=== PATIENT | female | born 1985 | race Caucasian/White ===

== ENCOUNTER 2019-05-01 00:51 | Inpatient (IN) | payer SELFPAY ==
[~2019-05-01 00:51] MED LIST: Bupivacaine 0.25% 10 ML SDV ONE; Lidocaine 1.5% with EPINEPHrine 1:200,000 5 ML Amp ONE; ePHEDrine 50 MG/ML SDV ONE
[2019-05-01] MEDS ORDERED: ePHEDrine 50 MG/ML SDV IVPUSH PRN (01:14)
[2019-05-01] MEDS ORDERED: diphenhydrAMINE 50 MG/ML SDV IVPUSH PRN (01:14)
[2019-05-01] MEDS ORDERED: Ondansetron 4 MG/2 ML SDV IVPUSH PRN (01:19)
[2019-05-01] MEDS ORDERED: Sodium Chloride 0.9% 10 ML Syringe FLUSH PRN (01:19)
[2019-05-01] MEDS ORDERED: Nalbuphine 10 MG/1 ML Vial IVPUSH PRN (01:19)
[2019-05-01] MEDS ORDERED: Oxytocin/Lactated Ringers 10 UNIT/1,000 ML BAG IV SCH ×2 (01:30)
[2019-05-01] MEDS: Bupivacaine/fentaNYL/NS 100 ML Bag EPIDUR PRN ×2 (01:54→11:04)
[2019-05-01] MEDS: fentaNYL 100 MCG/2 ML SDV EPIDUR PRN ×2 (01:54→03:17)
--- NOTE | 2019-05-01 01:54 | PCM.PREANE ---
Preanesthetic Assessment - Procedure Proposed Procedure: cinthya - Anesthesia/Transfusion/Family Hx Anesthesia History: Prior Anesthesia Without Reaction Transfusion History: No Prior Transfusion(s) - Review of Systems General: No Symptoms Pulmonary: No Symptoms Cardiovascular: No Symptoms Gastrointestinal: No Symptoms Neurological: No Symptoms Other: Reports: None - Physical Assessment Height: 5 ft 4 in Weight: 116.528 kg ASA Class: 2 Mental Status: Alert & Oriented x3 Airway Class: Mallampati = 1 Dentition: Reports: Normal Dentition Thyro-Mental Finger Breadths: 3 Mouth Opening Finger Breadths: 3 ROM/Head Extension: Full Lungs: Clear to Auscultation, Normal Respiratory Effort Cardiovascular: Regular Rate, Regular Rhythm - Lab Values: Laboratory Last Values WBC 9.82 K/mm3 (3.98-10.04) 05/01/19 01:35 RBC 3.84 M/mm3 (3.98-5.22) L 05/01/19 01:35 Hgb 11.7 gm/L (11.2-15.7) 05/01/19 01:35 Hct 34.8 % (34.1-44.9) 05/01/19 01:35 MCV 90.6 fl (79.4-94.8) 05/01/19 01:35 MCH 30.5 pg (25.6-32.2) 05/01/19 01:35 MCHC 33.6 g/dl (32.2-35.5) 05/01/19 01:35 RDW Std Deviation 44.3 fL (36.4-46.3) 05/01/19 01:35 Plt Count 234 K/mm3 (182-369) 05/01/19 01:35 MPV 10.3 fl (9.4-12.3) 05/01/19 01:35 Neut % (Auto) 65.6 % (34.0-71.1) 05/01/19 01:35 Lymph % (Auto) 26.3 % (19.3-51.7) 05/01/19 01:35 [place] % (Auto) 6.8 % (4.7-12.5) 05/01/19 01:35 Eos % (Auto) 0.8 (0.7-5.8) 05/01/19 01:35 Baso % (Auto) 0.2 % (0.1-1.2) 05/01/19 01:35 Neut # (Auto) 6.44 K/mm3 (1.56-6.13) H 05/01/19 01:35 Lymph # (Auto) 2.58 K/mm3 (1.18-3.74) 05/01/19 01:35 [place] # (Auto) 0.67 K/mm3 (0.24-0.36) H 05/01/19 01:35 Eos # (Auto) 0.08 K/mm3 (0.04-0.36) 05/01/19 01:35 Baso # (Auto) 0.02 K/mm3 (0.01-0.08) 05/01/19 01:35 - Allergies Allergies/Adverse Reactions: Allergies Allergy/AdvReac Type Severity Reaction Status Date / Time No Known Allergies Allergy Verified 05/01/19 01:02 - Blood Blood Available: No - Acknowledgements Anesthesia Type Planned: Epidural Pt an Appropriate Candidate for the Planned Anesthesia: Yes Alternatives and Risks of Anesthesia Discussed w Pt/Guardian: Yes Pt/Guardian Understands and Agrees with Anesthesia Plan: Yes PreAnesthesia Questionnaire Cardiovascular History: Reports: None Respiratory History: Reports: None Endocrine/Metabolic History: Reports: None, Obesity/BMI 30+ - SUBSTANCE USE Smoking Status *Q: Never Smoker Tobacco Use Within Last Twelve Months: No Second Hand Smoke Exposure: No Days Per Week of Alcohol Use: 0 Recreational Drug Use History: No - HOME MEDS Home Medications: Home Meds [id number]/Iron Fumarate/FA/DSS [ 19 Tablet] 1 each PO DAILY 05/01/19 [ History] - CURRENT (IN HOUSE) MEDS Current Meds: Current Medications Diphenhydramine HCl (Benadryl) 25 mg IVPUSH Q6H PRN PRN Reason: pruritis Ephedrine Sulfate (Ephedrine Sulfate) 5 mg IVPUSH ASDIRECTED PRN PRN Reason: Hypotension Fentanyl (Sublimaze) 100 mcg EPIDUR Q3H PRN PRN Reason: Pain Fentanyl/Bupivacaine HCl (Fentanyl/Bupivacaine/Ns 2 Mcg-0.125% 100 Ml) 100 ml EPIDUR ASDIRECTED PRN PRN Reason: Pain Lactated Ringer's (Ringers, Lactated) 1,000 mls @ 100 mls/hr IV ASDIRECTED SONA Oxytocin/Lactated Ringer's (Pitocin In Lr 10 Units/1,000 Ml) 10 unit in 1,000 mls @ 12 mls/hr IV TITRATE SONA; Protocol Oxytocin/Lactated Ringer's (Pitocin In Lr 10 Units/1,000 Ml) 10 unit in 1,000 mls @ 100 mls/hr IV .CONTINUOUS SONA Nalbuphine HCl (Nubain) 10 mg IVPUSH Q2H PRN PRN Reason: Pain Ondansetron HCl (Zofran) 4 mg IVPUSH Q4H PRN PRN Reason: Nausea/Vomiting Sodium Chloride (Saline Flush) 10 ml FLUSH ASDIRECTED PRN PRN Reason: Keep Vein Open
[2019-05-01] MEDS: Lactated Ringers 1,000 ML IV SCH ×4 (03:46→07:33)
--- NOTE | 2019-05-01 13:05 | PCM.LDHP ---
L&D History of Present Illness - General Date of Service: 05/01/19 Admit Problem/Dx: Patient Status Order with Admit Dx/Problem 05/01/19 01:20 Patient Status [ADT] Routine 05/01/19 08:15 Admission Status [Patient Status] [ADT] Routine Admission Diagnosis/Problem Admission Diagnosis/Problem Source of Information: Patient History Limitations: Reports: No Limitations - History of Present Illness Introduction:: 33 year old scheduled for induction later this morning presents in labor. Pain Score: 6 - Related Data Allergies/Adverse Reactions: Allergies Allergy/AdvReac Type Severity Reaction Status Date / Time No Known Allergies Allergy Verified 05/01/19 01:02 Home Medications: Home Meds [id number]/Iron Fumarate/FA/DSS [ 19 Tablet] 1 each PO DAILY 05/01/19 [ History] Past Medical History - Past Health History Medical/Surgical History: Denies Medical/Surgical History Cardiovascular History: Reports: None Respiratory History: Reports: None [employer] COMM[employer]ICATIONS History: Reports: Endocrine/Metabolic History: Reports: None, Obesity/BMI 30+ Social & Family History - Family History Family Medical History: Noncontributory - Tobacco Use Smoking Status *Q: Never Smoker Second Hand Smoke Exposure: No - Alcohol Use Days Per Week of Alcohol Use: 0 - Recreational Drug Use Recreational Drug Use: No H&P Review of Systems - Review of Systems: Review Of Systems: See Below General: Reports: No Symptoms HEENT: Reports: No Symptoms Pulmonary: Reports: No Symptoms Cardiovascular: Reports: No Symptoms Gastrointestinal: Reports: No Symptoms Genitourinary: Reports: No Symptoms Musculoskeletal: Reports: No Symptoms Skin: Reports: No Symptoms Psychiatric: Reports: No Symptoms Neurological: Reports: No Symptoms Hematologic/Lymphatic: Reports: No Symptoms Immunologic: Reports: No Symptoms L&D Exam - Exam Exam: See Below - Vital Signs Vital Signs: Last Vital Signs Temp 37.1 C 05/01/19 01:05 Pulse 71 05/01/19 07:01 Resp 16 05/01/19 01:05 BP 104/56 L 05/01/19 07:01 Pulse Ox 100 05/01/19 03:00 Weight: 116.528 kg - OB Specific Contraction Intensity: Moderate Movement: Active Heart Tones: Present Heart Rate (FHR) Variability: Moderate (6-25 bmp) Presentation: Vertex - Ryan Score Ryan Score Cervix Position: Midposition Ryan Score Consistency: Medium Ryan Score Effacement: 51-70% Ryan Score Dilation: 3-4 cm Ryan Score 's Station: -2 Ryan Score Total: 7 - Exam General: Alert, Oriented HEENT: PERRLA, Conjunctiva Clear, EACs Clear, EOMI, Hearing Intact, Mucosa Moist & [place], Nares Patent, Normal Nasal Septum, Posterior Pharynx Clear, TMs Clear Neck: Supple, Trachea Midline Lungs: Clear to Auscultation, Normal Respiratory Effort Cardiovascular: Regular Rate, Regular Rhythm GI/Abdominal Exam: Normal Bowel Sounds, Soft, Non-Tender, No Organomegaly, No Distention, No Abnormal Bruit, No Mass, Pelvis Stable Rectal Exam: Normal Exam, Normal Rectal Tone Back Exam: Normal Inspection, Full Range of Motion Extremities: Normal Inspection, Normal Range of Motion, Non-Tender, No Pedal Edema, Normal Capillary Refill Skin: Warm, Dry, Intact Neurological: Cranial Nerves Intact, Reflexes Equal Bilateral Psychiatric: Alert, Normal Affect, Normal Mood - Patient Data Lab Results Last 24 hrs: Laboratory Results - last 24 hr 05/01/19 Range/Units 01:35 WBC 9.82 (3.98-10.04) K/mm3 RBC 3.84 L (3.98-5.22) M/mm3 Hgb 11.7 (11.2-15.7) gm/L Hct 34.8 (34.1-44.9) % MCV 90.6 (79.4-94.8) fl MCH 30.5 (25.6-32.2) pg MCHC 33.6 (32.2-35.5) g/dl RDW Std Deviation 44.3 (36.4-46.3) fL Plt Count 234 (182-369) K/mm3 MPV 10.3 (9.4-12.3) fl Neut % (Auto) 65.6 (34.0-71.1) % Lymph % (Auto) 26.3 (19.3-51.7) % [place] % (Auto) 6.8 (4.7-12.5) % Eos % (Auto) 0.8 (0.7-5.8) Baso % (Auto) 0.2 (0.1-1.2) % Neut # (Auto) 6.44 H (1.56-6.13) K/mm3 Lymph # (Auto) 2.58 (1.18-3.74) K/mm3 [place] # (Auto) 0.67 H (0.24-0.36) K/mm3 Eos # (Auto) 0.08 (0.04-0.36) K/mm3 Baso # (Auto) 0.02 (0.01-0.08) K/mm3 Manual Slide Review Normal smear Result Diagrams: 05/01/19 01:35 Problem List Initiated/Reviewed/Updated: Yes Orders Last 24hrs: Active Orders 24 hr Category Date Time Status Admission Status [Patient Status] [ADT] Routine ADT 05/01/19 08:15 Active Patient Status Manage Transfer [TRANSFER] Routine ADT 05/01/19 13:01 Ordered Activity as Tolerated [RC] PFP Care 05/01/19 01:19 Active Communication Order [RC] ASDIRECTED Care 05/01/19 01:19 Active Notify Provider [RC] ASDIRECTED Care 05/01/19 01:14 Active Notify Provider [RC] PFP Care 05/01/19 01:19 Active Notify Provider [RC] PRN Care 05/01/19 01:19 Active Peripheral IV Care [RC] . DIRECTED Care 05/01/19 01:20 Active Vital Signs [RC] PER UNIT ROUTINE Care 05/01/19 01:05 Active Regular Diet [DIET] Diet 05/01/19 Breakfast Active RAPID PLASMA REAGIN,RPR [CHEM] Routine Lab 05/01/19 01:35 Received Bupivacaine/fentaNYL/NS [fentaNYL/Bupivacaine/NS 2 MCG- Med 05/01/19 01:14 Active 0.125% 100 ML] 100 ml EPIDUR ASDIRECTED PRN Lactated Ringers [Ringers, Lactated] 1,000 ml Med 05/01/19 01:30 Active IV ASDIRECTED Nalbuphine [Nubain] Med 05/01/19 01:19 Active 10 mg IVPUSH Q2H PRN Ondansetron [Zofran] Med 05/01/19 01:19 Active 4 mg IVPUSH Q4H PRN Oxytocin/Lactated Ringers [Pitocin in LR 10 Units/1,000 Med 05/01/19 01:30 Active ML] 10 unit in 1,000 ml IV .CONTINUOUS Oxytocin/Lactated Ringers [Pitocin in LR 10 Units/1,000 Med 05/01/19 01:30 Active ML] 10 unit in 1,000 ml IV TITRATE Sodium Chloride 0.9% [Saline Flush] Med 05/01/19 01:19 Active 10 ml FLUSH ASDIRECTED PRN diphenhydrAMINE [Benadryl] Med 05/01/19 01:14 Active 25 mg IVPUSH Q6H PRN ePHEDrine [ePHEDrine sulfate] Med 05/01/19 01:14 Active 5 mg IVPUSH ASDIRECTED PRN fentaNYL [Sublimaze] Med 05/01/19 01:14 Active 100 mcg EPIDUR Q3H PRN Electronic Heart Tones Ext w TOCO [WOMSER] Oth 05/01/19 01:19 Ordered Routine Electronic Heart Tones Internal [WOMSER] Per Unit Ot 05/01/19 01:19 Ordered Routine Peripheral IV Insertion Adult [OM.PC] Routine Ot 05/01/19 01:19 Ordered Resuscitation Status Routine Resus Stat 05/01/19 01:04 Ordered Medication Orders Diphenhydramine HCl (Benadryl) 25 mg IVPUSH Q6H PRN PRN Reason: pruritis Ephedrine Sulfate (Ephedrine Sulfate) 5 mg IVPUSH ASDIRECTED PRN PRN Reason: Hypotension Fentanyl (Sublimaze) 100 mcg EPIDUR Q3H PRN PRN Reason: Pain Last Admin: 05/01/19 03:17 Dose: 100 mcg Admin: 05/01/19 01:54 Dose: 100 mcg Fentanyl/Bupivacaine HCl (Fentanyl/Bupivacaine/Ns 2 Mcg-0.125% 100 Ml) 100 ml EPIDUR ASDIRECTED PRN PRN Reason: Pain Last Admin: 05/01/19 11:04 Dose: 100 ml Admin: 05/01/19 01:54 Dose: 100 ml Lactated Ringer's (Ringers, Lactated) 1,000 mls @ 100 mls/hr IV ASDIRECTED SONA Last Admin: 05/01/19 07:33 Dose: 100 mls/hr Infusion: 05/01/19 07:33 Dose: 100 mls/hr Admin: 05/01/19 03:57 Dose: 100 mls/hr Infusion: 05/01/19 03:57 Dose: 100 mls/hr Admin: 05/01/19 03:47 Dose: 100 mls/hr Infusion: 05/01/19 03:47 Dose: 100 mls/hr Admin: 05/01/19 03:46 Dose: 100 mls/hr Oxytocin/Lactated Ringer's (Pitocin In Lr 10 Units/1,000 Ml) 10 unit in 1,000 mls @ 12 mls/hr IV TITRATE SONA; Protocol Last Titration: 05/01/19 11:46 Dose: 8 munits/min, 48 mls/hr Titration: 05/01/19 10:32 Dose: 6 munits/min, 36 mls/hr Titration: 05/01/19 09:10 Dose: 4 munits/min, 24 mls/hr Admin: 05/01/19 08:25 Dose: 2 munits/min, 12 mls/hr Oxytocin/Lactated Ringer's (Pitocin In Lr 10 Units/1,000 Ml) 10 unit in 1,000 mls @ 100 mls/hr IV .CONTINUOUS SONA Last Admin: 05/01/19 07:33 Dose: 100 mls/hr Nalbuphine HCl (Nubain) 10 mg IVPUSH Q2H PRN PRN Reason: Pain Ondansetron HCl (Zofran) 4 mg IVPUSH Q4H PRN PRN Reason: Nausea/Vomiting Sodium Chloride (Saline Flush) 10 ml FLUSH ASDIRECTED PRN PRN Reason: Keep Vein Open Assessment/Plan Comment:: Term labor. Anticipate
--- NOTE | 2019-05-01 13:10 | PCM.SN ---
- Free Text/Narrative Note: Stage I - Patient presented in active labor. Progressed to complete with epidural anesthesia and pitocin augmentation. Overall reassuring heart tones Stage II - of viable male, weight 3910, 8/9 APGARS. Head delivered in controlled manner over intact perineum. Body and shoulders atraumatically. To maternal abdomen. Positive cry. Cord clamped and cut. Stage III - of intact placenta. 3vc. Small 2nd degree laceration repaired with 3-0 vicryl. EBL 500
[2019-05-01] MEDS ORDERED: Ibuprofen 600 MG Tab PO PRN (13:23)
[2019-05-01] MEDS ORDERED: Benzocaine/Menthol 20%-0.5% Spray 56 GM Canister TOP PRN (13:23)
[2019-05-01] MEDS ORDERED: Lanolin 100% Cream 7 GM Tube TOP PRN (13:23)
[2019-05-01] MEDS ORDERED: Witch Hazel Medicated Pads 40/Jar TOP PRN (13:23)
[2019-05-01] MEDS ORDERED: Docusate Sodium 100 MG Cap PO PRN (13:23)
[2019-05-01] MEDS ORDERED: Ammonia Inhalant Amp ONE (15:19)
[2019-05-01] MEDS ORDERED: Acetaminophen 325 MG Tab PO PRN (16:47)
--- NOTE | 2019-05-02 08:01 | PCM48HPAN ---
Post Anesthesia Note - EVALUATION WITHIN 48HRS OF ANESTHETIC Vital Signs in Normal Range: Yes Patient Participated in Evaluation: Yes Respiratory Function Stable: Yes Airway Patent: Yes Cardiovascular Function Stable: Yes Hydration Status Stable: Yes Pain Control Satisfactory: Yes Nausea and Vomiting Control Satisfactory: Yes Mental Status Recovered: Yes Vital Signs: Last Vital Signs Temp 37.2 C 05/02/19 04:34 Pulse 72 05/02/19 04:34 Resp 16 05/02/19 04:34 BP 99/48 L 05/02/19 04:34 Pulse Ox 96 05/02/19 04:34
--- NOTE | 2019-05-02 12:10 | PCM.DCSUM1 ---
Discharge Summary - Hospital Course Diagnosis: Stroke: No - Discharge Data Discharge Date: 05/02/19 Discharge Disposition: Home, Self-Care 01 Condition: Good - Patient Instructions Diet: Usual Diet as Tolerated Activity: No Strenuous Activities Driving: May Drive Today Showering/Bathing: May Shower Notify Provider of: Fever, Increased Pain, Swelling and Redness, Drainage, Nausea and/or Vomiting - Discharge Plan *PRESCRIPTION DRUG MONITORING PROGRAM REVIEWED*: No *COPY OF PRESCRIPTION DRUG MONITORING REPORT IN PATIENT REVA: No Home Medications: Home Meds [id number]/Iron Fumarate/FA/DSS [ 19 Tablet] 1 each PO DAILY 05/01/19 [ History] Patient Handouts: Home Care Instructions for Mom, Tips for a Good Latch - Discharge Summary/Plan Comment DC Time >30 min.: Yes - General Info Date of Service: 05/02/19 Functional Status: Reports: Pain Controlled - Review of Systems General: Reports: No Symptoms HEENT: Reports: No Symptoms Pulmonary: Reports: No Symptoms Cardiovascular: Reports: No Symptoms Gastrointestinal: Reports: No Symptoms Genitourinary: Reports: No Symptoms Musculoskeletal: Reports: No Symptoms Skin: Reports: No Symptoms Neurological: Reports: No Symptoms Psychiatric: Reports: No Symptoms - Patient Data Vitals - Most Recent: Last Vital Signs Temp 36.3 C 05/02/19 08:18 Pulse 63 05/02/19 08:18 Resp 14 05/02/19 08:18 BP 93/54 L 05/02/19 08:18 Pulse Ox 96 05/02/19 08:18 Weight - Most Recent: 116.528 kg I&O - Last 24 hours: Intake & Output 05/01/19 05/02/19 05/02/19 22:59 06:59 14:59 Intake Total 0 Balance 0 Lab Results - Last 24 hrs: Laboratory Results - last 24 hr 05/01/19 Range/Units 01:35 RPR Non-reactive (NONREACTIVE) Med Orders - Current: Current Medications Acetaminophen (Tylenol) 650 mg PO Q4H PRN PRN Reason: Headache/Pain Last Admin: 05/01/19 16:54 Dose: 650 mg Benzocaine/Menthol (Dermoplast Pain Relief [place]) 0 gm TOP ASDIRECTED PRN PRN Reason: Perineal Comfort Measure Last Admin: 05/01/19 15:41 Dose: 1 spray Docusate Sodium (Colace) 100 mg PO BID PRN PRN Reason: Constipation Last Admin: 05/02/19 00:14 Dose: 100 mg Emollient Ointment (Lansinoh Hpa) 0 gm TOP ASDIRECTED PRN PRN Reason: Sore Nipples Ibuprofen (Motrin) 600 mg PO Q6H PRN PRN Reason: Mild pain or fever Last Admin: 05/02/19 00:14 Dose: 600 mg Witch Letty (Tucks) 1 pad TOP ASDIRECTED PRN PRN Reason: Pain Last Admin: 05/01/19 15:41 Dose: 1 pad Discontinued Medications Ammonia (Aromatic Spirit) (Ammonia Aromatic Inhalant) Confirm Administered Dose 1 ampule .ROUTE .STK-MED ONE Stop: 05/01/19 15:20 Last Admin: 05/01/19 15:42 Dose: 1 ampule Bupivacaine HCl (Sensorcaine-Mpf 0.25%) 10 ml .ROUTE .STK-MED ONE Stop: 05/01/19 00:01 Bupivacaine HCl (Sensorcaine-Mpf 0.25%) 10 ml .ROUTE .STK-MED ONE Stop: 05/01/19 00:01 Diphenhydramine HCl (Benadryl) 25 mg IVPUSH Q6H PRN PRN Reason: pruritis Ephedrine Sulfate (Ephedrine Sulfate) 5 mg IVPUSH ASDIRECTED PRN PRN Reason: Hypotension Ephedrine Sulfate (Ephedrine Sulfate) 50 mg .ROUTE .STK-MED ONE Stop: 05/01/19 00:01 Fentanyl (Sublimaze) 100 mcg EPIDUR Q3H PRN PRN Reason: Pain Last Admin: 05/01/19 03:17 Dose: 100 mcg Fentanyl/Bupivacaine HCl (Fentanyl/Bupivacaine/Ns 2 Mcg-0.125% 100 Ml) 100 ml EPIDUR ASDIRECTED PRN PRN Reason: Pain Last Admin: 05/01/19 11:04 Dose: 100 ml Lactated Ringer's (Ringers, Lactated) 1,000 mls @ 100 mls/hr IV ASDIRECTED SONA Last Admin: 05/01/19 07:33 Dose: 100 mls/hr Oxytocin/Lactated Ringer's (Pitocin In Lr 10 Units/1,000 Ml) 10 unit in 1,000 mls @ 12 mls/hr IV TITRATE SONA; Protocol Last Titration: 05/01/19 11:46 Dose: 8 munits/min, 48 mls/hr Oxytocin/Lactated Ringer's (Pitocin In Lr 10 Units/1,000 Ml) 10 unit in 1,000 mls @ 100 mls/hr IV .CONTINUOUS SONA Last Admin: 05/01/19 07:33 Dose: 100 mls/hr Lidocaine/Epinephrine (Xylocaine-Mpf 1.5% W/Epinephrine 1:200,000) 5 ml .ROUTE .K-MED ONE Stop: 05/01/19 00:01 Nalbuphine HCl (Nubain) 10 mg IVPUSH Q2H PRN PRN Reason: Pain Ondansetron HCl (Zofran) 4 mg IVPUSH Q4H PRN PRN Reason: Nausea/Vomiting Sodium Chloride (Saline Flush) 10 ml FLUSH ASDIRECTED PRN PRN Reason: Keep Vein Open - Exam General: Reports: Alert, Oriented HEENT: Reports: Pupils Equal, Pupils Reactive, EOMI, Mucous Membr. Moist/[place] Neck: Reports: Supple Lungs: Reports: Clear to Auscultation, Normal Respiratory Effort Cardiovascular: Reports: Regular Rate, Regular Rhythm GI/Abdominal Exam: Normal Bowel Sounds, Soft, Non-Tender, No Organomegaly, No Distention, No Abnormal Bruit, No Mass, Pelvis Stable Rectal (Female) Exam: Normal Exam, Normal Rectal Tone Back Exam: Reports: Normal Inspection, Full Range of Motion Extremities: Normal Inspection, Normal Range of Motion, Non-Tender, No Pedal Edema, Normal Capillary Refill Skin: Reports: Warm, Dry, Intact Wound/Incisions: Reports: Healing Well Neurological: Reports: No New Focal Deficit Psy/Mental Status: Reports: Alert, Normal Affect, Normal Mood
== END 2019-05-02 14:35 | disposition home or self-care (01) | DRG 807 ==
LOC: JD.OBCHECK 00:51 → JD.OB 00:52 → JD.OBCHECK 08:15 → OBSVTOIN 12:44 → JD.OB 12:45
PROVIDERS: ADMIT Obstetrics & Gynecology; ATTEND Obstetrics & Gynecology
PROC: 10E0XZZ Delivery of Products of Conception, External Approach (ICD-10-PCS; principal; 2019-05-01)
PROC: 0KQM0ZZ Repair Perineum Muscle, Open Approach (ICD-10-PCS; 2019-05-01)
PROC: 3E0S3BZ Introduction of Anesthetic Agent into Epidural Space, Percutaneous Approach (ICD-10-PCS; 2019-05-01)
PROC: 00HU33Z Insertion of Infusion Device into Spinal Canal, Percutaneous Approach (ICD-10-PCS; 2019-05-01)
DX: O48.0 Post-term pregnancy (principal); Z37.0 Single live birth; O70.1 Second degree perineal laceration during delivery; Z3A.41 41 weeks gestation of pregnancy; O99.213 Obesity complicating pregnancy, third trimester; E66.9 Obesity, unspecified; Z79.899 Other long term (current) drug therapy
CPT/HCPCS: 36415; 51702; 59025; 59409; 85025; 86592; A9270-GY; J2590; J3010; J3490; J7120